=== PATIENT | female | born 1975 | race American Indian/Alaskan Native ===

== ENCOUNTER 2020-07-18 19:36 | Emergency (ER) | payer SELFPAY ==
[2020-07-18 20:17] VITALS: BP 147/82
[2020-07-18] MEDS ORDERED: DIPHtheria,PERTUSSIS(ACELL),TETANUS VACCINE/PF 0.5 ML VIAL IM ONE (22:44)
[2020-07-18] MEDS ORDERED: LIDOCAINE (1%) 10 MG/1 ML VIAL 20 ML MDV INFILTRATI ONE (22:44)
[2020-07-18] MEDS ORDERED: IBUPROFEN 600 MG TAB PO ONE (22:44)
[2020-07-19] MEDS ORDERED: NEOMY 3.5 MG/BACIT 400 UNITS/POLY B 5000 UNITS/GM OINT PACKET TP ONE (00:11)
--- NOTE | 2020-07-19 00:17 | Emergency Department Report ---
- General Chief Complaint: Wound/Laceration Stated Complaint: CUT THUMB Source: family Mode of arrival: Ambulatory Limitations: No Limitations - History of Present Illness Initial Comments: Patient is a 44-year-old -[place] female with no past medical history and who presents to the ED with complaint of acute onset painful bleeding left thumb laceration on the palmar side after she accidentally cut her left thumb when opening particular container at home with a sharp knife 2 hours ago. Patient states that the pain and the bleeding has been persistent. Patient states that she is not up-to-date with her tetanus vaccination. Patient denies numbness and tingling or weakness of left arm or left hand, dizziness, syncope, nausea, vomiting, headache, shortness of breath or change in vision. -: Sudden, hour(s) (2) Location: other (left thumb laceration) Extremity Location: Left: Hand (left thumb laceration) Place: home Patient Tetanus UTD: No (Given during this visit) Context: accidental, sharp object use Associated Symptoms: pain. denies: loss of feeling/numbness, suspect foreign body present, unable to move injured part, weakness followed by dizziness, nausea/vomiting, fever, other - Related Data Previous Rx's Medication Instructions Recorded Last Taken Type Ibuprofen [Motrin] 800 mg PO Q8HR PRN #30 tablet 07/19/20 Unknown Rx cephALEXin [Keflex] 500 mg PO Q8HR #30 cap 07/19/20 Unknown Rx Allergies Allergy/AdvReac Type Severity Reaction Status Date / Time No Known Allergies Allergy Unverified 07/18/20 20:17 ED Review of Systems ROS: Stated complaint: CUT THUMB Other details as noted in HPI Constitutional: denies: chills, fever Eyes: denies: eye pain, eye discharge, vision change ENT: denies: ear pain, throat pain Respiratory: denies: cough, shortness of breath, wheezing Cardiovascular: denies: chest pain, palpitations Endocrine: no symptoms reported Gastrointestinal: denies: abdominal pain, nausea, diarrhea Genitourinary: denies: urgency, dysuria, discharge Musculoskeletal: arthralgia (Bleeding left thumb laceration with pain). denies: back pain, joint swelling Skin: other (Bleeding left thumb laceration with pain). denies: rash, lesions Neurological: denies: headache, weakness, paresthesias Psychiatric: denies: anxiety, depression Hematological/Lymphatic: denies: easy bleeding, easy bruising ED Past Medical Hx - Past Medical History Previous Medical History?: No - Surgical History Past Surgical History?: No - Social History Smoking Status: Never Smoker Substance Use Type: None - Medications Home Medications: Home Medications Medication Instructions Recorded Confirmed Last Taken Type Ibuprofen [Motrin] 800 mg PO Q8HR PRN #30 tablet 07/19/20 Unknown Rx cephALEXin [Keflex] 500 mg PO Q8HR #30 cap 07/19/20 Unknown Rx ED Physical Exam - General Limitations: No Limitations General appearance: alert, in no apparent distress - Head Head exam: Present: atraumatic, normocephalic, normal inspection - Eye Eye exam: Present: normal appearance, PERRL, EOMI Pupils: Present: normal accommodation - ENT ENT exam: Present: normal exam, normal orophraynx, mucous membranes moist, TM's normal bilaterally, normal external ear exam - Neck Neck exam: Present: normal inspection, full ROM - Respiratory Respiratory exam: Present: normal lung sounds bilaterally. Absent: respiratory distress, wheezes, rales, rhonchi, chest wall tenderness, accessory muscle use, decreased breath sounds, prolonged expiratory - Cardiovascular Cardiovascular Exam: Present: regular rate, normal rhythm, normal heart sounds. Absent: systolic murmur, diastolic murmur, rubs, gallop - GI/Abdominal GI/Abdominal exam: Present: soft, normal bowel sounds. Absent: tenderness, guarding, rebound, hyperactive bowel sounds, hypoactive bowel sounds, organomegaly - Extremities Exam Extremities exam: Present: normal inspection, full ROM, tenderness (Palpable left thumb tenderness due to a bleeding 3 cm laceration on the palmar side), normal capillary refill - Back Exam Back exam: Present: normal inspection, full ROM. Absent: tenderness, CVA tenderness (R), muscle spasm, paraspinal tenderness, vertebral tenderness - Neurological Exam Neurological exam: Present: alert, oriented X3, CN II-XII intact, normal gait, reflexes normal - Psychiatric Psychiatric exam: Present: normal affect, normal mood - Skin Skin exam: Present: warm, dry, intact, normal color, other (Bleeding 3 cm laceration on left thumb on palmar side). Absent: rash ED Course Vital Signs 07/18/20 20:12 Temperature 98.6 F Pulse Rate 82 Respiratory 16 Rate Blood Pressure 147/82 O2 Sat by Pulse 99 Oximetry - Laceration /Wound Repair Left Palm Finger Wound Location: upper extremity (Left thumb laceration on palmar side) Wound's Depth, Shape: superficial, linear Wound Explored: contaminated Irrigated w/ Saline (ccs): 3 Betadine Prep?: No Anesthesia: 1% Lidocaine Volume Anesthetic (ccs): 4 Wound Debrided: extensive Wound Repaired With: sutures Suture Size/Type: 4:0, proline Number of Sutures: 6 Layer Closure?: No Sterile Dressing Applied?: Yes Progress: Patient tolerated the procedure well. The wound was then dressed appropriately and the patient discharged home on pain medication and prophylactic antibiotics. Patient was advised return to the ED immediately if symptoms get worse. Patient was also advised to return to the ED or to her primary care physician in 12 to 14 days for suture removal. ED Medical Decision Making - Medical Decision Making This is a 44-year-old -[place] female with no past medical history and who presents to the ED with complaint of acute onset painful bleeding left thumb laceration on the palmar side after she accidentally cut her left thumb when opening particular container at home with a sharp knife 2 hours ago. Patient states that the pain and the bleeding has been persistent. Patient states that she is not up-to-date with her tetanus vaccination. In the ED, patient is alert and oriented x3 and is not in distress. Patient was treated for pain in the ED. Patient also received booster tetanus vaccination in the ED. The left thumb laceration was cleaned thoroughly and sutured per protocol. Patient tolerated procedure well. The wound was then dressed appropriately and the patient was discharged home on pain medication and prophylactic antibiotics, and was advised to return to the ED immediately if symptoms get worse. Patient was also advised to return to the ED or to her primary care physician in 12 to 14 days for suture removal. - Differential Diagnosis Puncture wound; laceration; abrasion; Critical care attestation.: If time is entered above; I have spent that time in minutes in the direct care of this critically ill patient, excluding procedure time. ED Disposition Clinical Impression: Laceration of left thumb without foreign body without damage to nail Qualifiers: Encounter type: initial encounter Qualified Code(s): S61.012A - Laceration without foreign body of left thumb without damage to nail, initial encounter Disposition: - TO HOME OR SELFCARE Is pt being admited?: No Does the pt Need Aspirin: No Condition: Stable Instructions: Finger Laceration (ED), Suture Care (ED) Additional Instructions: Take medication with food, drink plenty of fluids and follow-up with your primary care physician in 7 to 10 days for reevaluation. Return to the ED immediately if symptoms get worse. Otherwise return to the ED in 12 to 14 days for suture removal. Prescriptions: cephALEXin [Keflex] 500 mg PO Q8HR #30 cap Ibuprofen [Motrin] 800 mg PO Q8HR PRN #30 tablet PRN Reason: Pain , Severe (7-10) Referrals: [facility] [Provider Group] - 7-10 days Time of Disposition: 00:15 Print Language: YORUBA
== END 2020-07-19 00:22 | disposition home or self-care (01) ==
LOC: ED 19:36
DX: S61.012A Laceration without foreign body of left thumb without damage to nail, initial encounter (principal); Z79.899 Other long term (current) drug therapy; W26.0XXA Contact with knife, initial encounter; Y93.89 Activity, other specified; Y92.009 Unspecified place in unspecified non-institutional (private) residence as the place of occurrence of the external cause; Y99.8 Other external cause status
CPT/HCPCS: 12002; 90715; 96372; 99283; A6250

== ENCOUNTER 2020-08-01 14:31 | Emergency (ER) | payer OTHER ==
[2020-08-01 14:37] VITALS: BP 144/96
--- NOTE | 2020-08-01 14:50 | Emergency Department Report ---
ED General Adult HPI - General Chief complaint: Laceration/Recheck/Suture Stated complaint: STICHES IN HAND REMOVED Time Seen by Provider: 08/01/20 14:40 Source: patient Mode of arrival: Ambulatory Limitations: No Limitations - History of Present Illness Initial comments: 44-year-old -[place] female patient presents for suture removal today. Sutures were placed here in ED on 07/18/2020. She denies any numbness/tingling/weakness to her limbs, increased pain, swelling, purulent drainage, difficulty moving the finger, or fever/chills/sweats. Patient states she did complete her Keflex antibiotics. - Related Data Previous Rx's Medication Instructions Recorded Last Taken Type Ibuprofen [Motrin] 800 mg PO Q8HR PRN #30 tablet 07/19/20 Unknown Rx cephALEXin [Keflex] 500 mg PO Q8HR #30 cap 07/19/20 Unknown Rx Allergies Allergy/AdvReac Type Severity Reaction Status Date / Time No Known Allergies Allergy Unverified 07/18/20 20:17 ED Review of Systems ROS: Stated complaint: STICHES IN HAND REMOVED Other details as noted in HPI Constitutional: denies: chills, diaphoresis, fever, malaise, weakness Musculoskeletal: denies: joint swelling, arthralgia Skin: denies: rash, lesions, change in color Neurological: denies: numbness, paresthesias ED Past Medical Hx - Past Medical History Previous Medical History?: No - Surgical History Past Surgical History?: No - Social History Smoking Status: Never Smoker Substance Use Type: None - Medications Home Medications: Home Medications Medication Instructions Recorded Confirmed Last Taken Type Ibuprofen [Motrin] 800 mg PO Q8HR PRN #30 tablet 07/19/20 Unknown Rx cephALEXin [Keflex] 500 mg PO Q8HR #30 cap 07/19/20 Unknown Rx ED Physical Exam - General Limitations: No Limitations General appearance: alert, in no apparent distress - Head Head exam: Present: atraumatic, normocephalic - Eye Eye exam: Present: normal appearance. Absent: scleral icterus - Respiratory Respiratory exam: Absent: respiratory distress - Cardiovascular Cardiovascular Exam: Present: regular rate - Neurological Exam Neurological exam: Present: alert, oriented X3, normal gait - Psychiatric Psychiatric exam: Present: normal affect, normal mood - Skin Skin exam: Present: warm, dry, intact, normal color, other (6 simple sutures noted to left lateral thumb without surrounding erythema, swelling, or purulent drainage. There is minimal tenderness to palpation). Absent: rash, erythema ED Course Vital Signs 08/01/20 14:35 Temperature 98.3 F Pulse Rate 83 Respiratory 16 Rate Blood Pressure 144/96 O2 Sat by Pulse 96 Oximetry - Procedure Description Procedures done: 6 simple sutures removed from left thumb; no bleeding occurred; no wound dehiscence noted; patient tolerated procedure well without any immediate complications ED Medical Decision Making - Medical Decision Making 44-year-old -[place] female patient presents for suture removal today. Sutures were placed here in ED on 07/18/2020. She denies any numbness/tingling /weakness to her limbs, increased pain, swelling, purulent drainage, difficulty moving the finger, or fever/chills/sweats. Patient states she did complete her Keflex antibiotics. Sutures removed. Patient tolerated procedure well. Patient to follow-up with PCP as needed. She is well-appearing, her vitals are normal, she is stable for discharge home. Strict return precautions were discussed in detail with patient who verbalizes understanding. Critical care attestation.: If time is entered above; I have spent that time in minutes in the direct care of this critically ill patient, excluding procedure time. ED Disposition Clinical Impression: Visit for suture removal Disposition: -01 TO HOME OR SELFCARE Is pt being admited?: No Condition: Stable Instructions: Suture Removal (ED) Referrals: PRIMARY CARE, [Referring] - 3-5 Days
== END 2020-08-01 15:10 | disposition home or self-care (01) ==
LOC: ED 14:31
DX: S61.012A Laceration without foreign body of left thumb without damage to nail, initial encounter (principal); Z48.02 Encounter for removal of sutures; X58.XXXA Exposure to other specified factors, initial encounter; Y93.89 Activity, other specified; Y92.89 Other specified places as the place of occurrence of the external cause; Y99.8 Other external cause status